=== PATIENT | female | born 1965 | race Caucasian/White ===

== ENCOUNTER 2019-07-27 17:31 | Inpatient (IN) | payer MEDICARE, MEDICAID ==
[2019-07-27] MEDS ORDERED: NS 0.9% 1000 ML** 1,000 ML IV ONE (17:35)
[2019-07-27] MEDS ORDERED: Ondansetron INJ* 2 MG/ML VIAL IV ONE (17:35)
[2019-07-27] MEDS ORDERED: Morphine 4 MG/ML VIAL (1 ml) 4 MG/ML VIAL IV ONE (17:50)
--- NOTE | 2019-07-27 17:51 | ED ---
Abdominal Pain/Female - HPI Summary HPI Summary: 53 yo female presents to [facility] via EMS with abdominal pain. She tells me that yesterday she developed epigastric and RUQ pain with nausea and vomiting. Her symptoms have gotten worse today. She has tried to eat and drink small amounts, but has vomited each time. She denies fever, chills, SOB, chest pain, diarrhea, dysuria, back or flank pain. 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 States no chance of today. No hx of abdominal surgeries. Last BM was 3 days ago which is normal for her BM routine. - History of Current Complaint Chief Complaint: EDAbdPain Stated Complaint: NAUSEA/VOMITTING PER EMS Time Seen by Provider: 07/27/19 17:34 Hx Obtained From: Patient Hx Last Menstrual Period: unknown Onset/Duration: Sudden Onset Severity Initially: Moderate Severity Currently: Severe Pain Intensity: 8 Pain Scale Used: 0-10 Numeric Allergies/Adverse Reactions: Allergies Allergy/AdvReac Type Severity Reaction Status Date / Time aspirin Allergy Unknown Verified 07/27/19 18:47 Reaction Details bee venom protein (honey bee) Allergy Unknown Verified 07/27/19 18:47 Reaction Details gabapentin Allergy Unknown Verified 07/27/19 18:47 Reaction Details Home Medications: Home Medications Bupropion XL* [Wellbutrin XL *] 150 mg PO DAILY 07/27/19 [History Confirmed 11/02] Clopidogrel TAB* [Plavix TAB*] 75 mg PO DAILY 07/27/19 [History Confirmed ] Isosorbide Mononitrate ER TAB* [Imdur ER TAB*] 30 mg PO DAILY 07/27/19 [History Confirmed 07/27/19] Lansoprazole SOLUTAB* [Prevacid Solutab*] 30 mg PO DAILY 07/27/19 [History Confirmed 07/27/19] Rosuvastatin (NF) [Crestor (NF)] 40 mg PO DAILY 07/27/19 [History Confirmed 11/02] PMH/Surg Hx/FS Hx/Imm Hx Endocrine/Hematology History: Reports: Hx Anticoagulant Therapy Denies: Hx Diabetes, Hx Thyroid Disease Cardiovascular History: Reports: Hx Myocardial Infarction Denies: Hx Hypertension Comment Only: Other Cardiovascular Problems/Disorders - CAD Respiratory History: Reports: Hx Asthma, Hx Chronic Obstructive Pulmonary Disease (COPD) GI History: Denies: Hx Ulcer History: Denies: Hx Dialysis, Hx Renal Disease Musculoskeletal History: Denies: Hx Fibromyalgia Neurological History: Reports: Hx CVA Psychiatric History: Reports: Hx Schizophrenia - Surgical History Surgical History: Yes Surgery Procedure, Year, and Place: [facility] 01/22. LEFT carotid surgury for blockage =2009. tubal ligation Infectious Disease History: No Infectious Disease History: Denies: Hx Hepatitis, Hx Human Immunodeficiency Virus (HIV), Traveled Outside the [place] in Last 30 Days - Family History Known Family History: Positive: Non-Contributory - Social History Lives: With Family Alcohol Use: None Substance Use Type: Reports: Marijuana Smoking Status (MU): Heavy Every Day Tobacco Smoker Type: Cigarettes Amount Used/How Often: 6-7 cigs per day Review of Systems Constitutional: Negative Eyes: Negative ENT: Negative Cardiovascular: Negative Respiratory: Negative Positive: Abdominal Pain, Vomiting, Nausea Genitourinary: Negative Musculoskeletal: Negative Skin: Negative Neurological: Negative Psychological: Normal All Other Systems Reviewed And Are Negative: Yes Physical Exam - Summary Physical Exam Summary: GENERAL: Mild pain distress. SKIN: No rashes, sores, or open wounds. HEENT: Head: AT/NC Eyes: PERRLA. EOM intact. NECK: Supple. Nontender. No lymphadenopathy. CHEST: CTAB. No r/r/w. No accessory muscle use. Breathing comfortably and in no distress. CV: RRR. Without m/r/g. Pulses intact. Brisk cap refill. ABDOMEN: Moderate RUQ TTP. Positive santana sign. No distention or guarding. No CVA tenderness. Bowel sounds present MSK: FROM and 5/5 strength throughout. No edema. NEURO: Alert. PSYCH: Age appropriate behavior. Triage Information Reviewed: Yes Vital Signs On Initial Exam: Initial Vitals Temp Pulse Resp BP Pulse Ox 96.8 F 78 16 153/101 96 07/27/19 17:37 07/27/19 17:37 07/27/19 17:37 07/27/19 17:37 07/27/19 17:37 Vital Signs Reviewed: Yes Diagnostics - Vital Signs Vital Signs Temp Pulse Resp BP Pulse Ox 07/27/19 17:37 96.8 F 78 16 153/101 96 - Laboratory Lab Results: Laboratory Tests 07/27/19 07/27/19 07/27/19 18:03 18:03 18:03 WBC 22.5 H RBC 5.67 H Hgb 17.0 H Hct 48 H MCV 85 MCH 30 MCHC 35 RDW 14 Plt Count 348 MPV 6.9 L Neut % (Auto) 83.9 Lymph % (Auto) 11.3 [place] % (Auto) 4.2 Eos % (Auto) 0.0 Baso % (Auto) 0.6 Absolute Neuts (auto) 18.9 H Absolute Lymphs (auto) 2.5 Absolute Monos (auto) 1.0 H Absolute Eos (auto) 0.0 Absolute Basos (auto) 0.1 Absolute Nucleated RBC 0.0 Nucleated RBC % 0.0 Sodium 134 L Potassium 3.4 L Chloride 93 L Carbon Dioxide 23 Anion Gap 18 H BUN 36 H Creatinine 1.05 H Est GFR ( Amer) 66.9 Est GFR (Non-Af Amer) 55.3 BUN/Creatinine Ratio 34.3 H Glucose 148 H Lactic Acid 1.7 Calcium 10.1 Magnesium 2.0 Total Bilirubin 0.70 AST 13 ALT 15 Alkaline Phosphatase 131 H C-Reactive Protein 17.84 H Total Protein 8.2 Albumin 4.7 Globulin 3.5 Albumin/Globulin Ratio 1.3 Lipase 47 Beta HCG, Quant 5.45 07/27/19 Range/Units 20:29 WBC (3.5-10.8) 10^3/uL RBC (3.70-4.87) 10^6 /uL Hgb (12.0-16.0) g/dL Hct (35-47) % MCV (80-97) fL MCH (27-31) pg MCHC (31-36) g/dL RDW (10-15) % Plt Count (150-450) 10^3/uL MPV (7.4-10.4) fL Neut % (Auto) % Lymph % (Auto) % [place] % (Auto) % Eos % (Auto) % Baso % (Auto) % Absolute Neuts (auto) (1.5-7.7) 10^3/ul Absolute Lymphs (auto) (1.0-4.8) 10^3/ul Absolute Monos (auto) (0-0.8) 10^3/ul Absolute Eos (auto) (0-0.6) 10^3/ul Absolute Basos (auto) (0-0.2) 10^3/ul Absolute Nucleated RBC 10^3/ul Nucleated RBC % Sodium (135-145) mmol/L Potassium (3.5-5.0) mmol/L Chloride (101-111) mmol/L Carbon Dioxide (22-32) mmol/L Anion Gap (2-11) mmol/L BUN (6-24) mg/dL Creatinine (0.51-0.95) mg/dL Est GFR ( Amer) (>60) Est GFR (Non-Af Amer) (>60) BUN/Creatinine Ratio (8-20) Glucose (70-100) mg/dL Lactic Acid (0.5-2.0) mmol/L Calcium (8.6-10.3) mg/dL Magnesium (1.9-2.7) mg/dL Total Bilirubin (0.2-1.0) mg/dL AST (13-39) U/L ALT (7-52) U/L Alkaline Phosphatase (34-104) U/L C-Reactive Protein (<8.01) mg/L Total Protein (6.4-8.9) g/dL Albumin (3.2-5.2) g/dL Globulin (2-4) g/dL Albumin/Globulin Ratio (1-3) Lipase (11.0-82.0) U/L Beta HCG, Quant mIU/mL Urine Color [place] Urine Appearance Cloudy Urine pH 6.0 (5-9) Ur Specific [place] 1.044 H (1.010-1.030) Urine Protein 2+(100 mg/dl) A (Negative) Urine Ketones 1+ A (Negative) Urine Blood Negative (Negative) Urine Nitrate Negative (Negative) Urine Bilirubin Negative (Negative) Urine Urobilinogen Negative (Negative) Ur Leukocyte Esterase Negative (Negative) Urine WBC (Auto) Absent (Absent) Urine RBC (Auto) Absent (Absent) Ur Squamous Epith Cells Present A (Absent) Urine Bacteria Absent (Absent) Urine Glucose Negative (Negative) Result Diagrams: 07/31/19 04:38 07/31/19 04:38 Lab Statement: Any lab studies that have been ordered have been reviewed, and results considered in the medical decision making process. - Radiology US gallbladder Radiology Interpretation Completed By: Radiologist Summary of Radiographic Findings: IMPRESSION: No acute sonographic pathology but limited visibility in the right upper quadrant because of overlying bowel gas. CXR Radiology Interpretation Completed By: ED Physician Summary of Radiographic Findings: No PNA - CT Ab/pelv po contrast CT Interpretation Completed By: Radiologist Summary of CT Findings: FINDINGS: Mediastinum: There is new abnormal wall thickening involving the distal esophagus suspicious for possible esophagitis and there is a new small hiatal hernia. Liver: Stable hepatomegaly. Gallbladder and bile ducts: The gallbladder appears unremarkable. Pancreas: The pancreas is unremarkable. Spleen: Normal. No splenomegaly. Adrenals: Normal. No mass. Kidneys and ureters: Normal. No hydronephrosis. Stomach and bowel: Stable gastric diverticulum at the gastric fundus. There is stable sigmoid colonic diverticulosis without evidence for acute diverticulitis. Appendix: The appendix is unremarkable and seen best on axial image 53 of series 2. Intraperitoneal space: Unremarkable. No free air. No significant fluid collection. Vasculature: There are mild atherosclerotic aortic and iliac and femoral artery calcifications. Lymph nodes: Unremarkable. No enlarged lymph nodes. Bladder: Unremarkable as visualized. Reproductive: Unremarkable as visualized. Bones/joints: There are mild degenerative changes of the spine. Soft tissues: Unremarkable. IMPRESSION: 1. There is new abnormal wall thickening involving the distal esophagus suspicious for possible esophagitis and there is a new small hiatal hernia. 2. The pancreas is unremarkable. 3. The gallbladder appears unremarkable. 4. There is stable sigmoid colonic diverticulosis without evidence for acute diverticulitis. - EKG 1 Cardiac Rate: NL EKG Rhythm: Sinus Rhythm ST Segment: Normal Ectopy: None EKG Comparison: Other - 91bpm. No STEMI read by Dr. Donald Re-Evaluation - Re-Evaluation First Eval Re-Evaluation Time: 20:04 Change: Unchanged Comment: Reviewed US and CT results. Pt states no improvement and still periodic vomiting. Second Eval Re-Evaluation Time: 21:38 Change: Improved Comment: Has not vomited in over 45 minutes. Overall feels slightly improved, but still with pain to epigastrum 5/10 at rest and 8-9/10 with palpation. Abdominal Pain Fem Course/Dx - Course Course Of Treatment: In the ED course pt was initially given NS, morphine, and zofran for her symptoms. Labwork revealed leukocytosis - based on this, her clinical exam, and tachycardia, zosyn and 2L NS were administered for suspicion of intra-abdominal infection. US and CT revealed no correlation with pt's symptoms. I discussed case with Dr. Donald due to pt's leukocytosis, continued vomiting, and abdominal pain with no correlation on US, UA, CT, or CXR and he recommends continued observation at this time to see if she improves clinically and can tolerate po - if not recommends admit for leukocytosis, vomiting, and tachycardia. On second eval - Pt remains mildly tachycardic averaging 100bpm- 115bpm. Her vomiting lessened on second eval and a po trial of ice chips and crackers was tried and she was able to tolerate this, but her pain was still 9/ 10 on light palpation. Pt does not feel comfortable going home this evening. Given her slow/minimal improvement and continued pain - I consulted the hospitalist team who accepts pt for admission. - Diagnoses Provider Diagnoses: Vomiting, Epigastric abdominal pain, Leukocytosis - Provider Notifications Discussed Care Of Patient With: Tahir Xavier Instructed by Provider To: Admit As Inpatient Discharge ED - Sign-Out/Discharge Documenting (check all that apply): Patient Departure - Discharge Plan Condition: Stable Disposition: ADMITTED TO [facility] - Billing Disposition and Condition Condition: STABLE Disposition: Admitted to [facility] - Attestation Statements Provider Attestation: I was available for consult. This patient was seen by the [facility]. The patient was not presented to, seen by, or examined by me. Hesham Donald MD
[2019-07-27 18:10] LABS: Hematocrit 48 % (35-47); Mean Corpuscular HGB Conc 35 g/dL (31-36); Mean Corpuscular Hemoglobin 30 pg (27-31); Mean Corpuscular Volume 85 fL (80-97); Mean Platelet Volume 6.9 fL (7.4-10.4); Platelet Count 348 10^3/uL (150-450); Red Blood Count 5.67 10^6 /uL (3.70-4.87); Red Cell Distribution Width 14 % (10-15); White Blood Count 22.5 10^3/uL (3.5-10.8)
[2019-07-27] MEDS ORDERED: Piperacillin/Tazobac ADVAN(*) 3.375 GM in NS 0.9% 100 ML* 100 ML IVPB ONE (18:19)
[2019-07-27] MEDS ORDERED: Piperacillin/Tazobac (*) 3.375 GM BAG ONE (18:24)
[2019-07-27 18:28] LABS: Albumin 4.7 g/dL (3.2-5.2); Albumin/Globulin Ratio 1.3 (1-3); BUN/Creatinine Ratio 34.3 (8-20); C Reactive Protein 17.84 mg/L (<8.01); Calcium 10.1 mg/dL (8.6-10.3); EGFR African American 66.9 (>60); EGFR Non-African American 55.3 (>60); Globulin 3.5 g/dL (2-4); Potassium 3.4 mmol/L (3.5-5.0); Total Bilirubin 0.7 mg/dL (0.2-1.0); Total Protein 8.2 g/dL (6.4-8.9)
[2019-07-27 18:35] LABS: HCG Pregnancy 5.45 mIU/mL
[2019-07-27 18:37] LABS: ABS Basophils 0.1 10^3/ul (0-0.2); ABS Lymphocytes 2.5 10^3/ul (1.0-4.8); ABS Neutrophils 18.9 10^3/ul (1.5-7.7); Lymphocyte % 11.3 %
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
--- OUTSIDE RECORDS SUMMARY | 2019-07-27 19:15 | XMS REPORT | Summary of Care ---
:1965 Author Organization [facility] Address [address] [facility] [place] [address] Care Team Providers Name Role Phone Tucker Ragland Primary Care Provider Reason for Visit Reason Comments Neck Pain pt states went to [place] ER due to neck pain. pt was dx'd with muscle spasms. pt has rash left side of posterior neck, pain shooting down left side of back and left arm Encounter Details Date Type Department Care Team Description 07/12/2019 Office Visit Corinna Adame, Herpes zoster without complication (Primary Dx); Practice SENIOR PROGRAM ANALYST Muscle spasm [address] [place], [place] [address] [place] [address] [phone] Allergies Active Allergy Reactions Severity Noted Date Comments Aspirin Swelling 06/13/2019 Bee Sting Swelling 06/13/2019 Eucalyptus Leaves Powder Anaphylaxis 06/13/2019 Gabapentin Swelling 06/13/2019 Menthol Anaphylaxis 06/13/2019 Petrolatum, Hydrophilic Other 06/13/2019 Vicks also [employer] [place] [employer] documented as of this encounter (statuses as of 07/12/2019) Medications Medication Sig Dispensed Refills Start Date End Date Status Lansoprazole 30 MG Oral Take 1 Tab by 0 Active TABLET DISPERSIBLE mouth DAILY. ALBUTEROL IN Take by 0 Active inhalation. clopidogrel (PLAVIX) 75 Take 75 mg by 0 Active MG Oral Tab mouth DAILY. buPROPion XL (WELLBUTRIN Take 1 Tab by 90 Tab 0 06/20/2019 Active XL) 150 MG Oral TABLET SR mouth DAILY. 24 HR 24 hour tablet isosorbide MONOnitrate Take 1 Tab by 90 Tab 1 06/20/2019 Active (IMDUR) 30 MG Oral TABLET mouth DAILY. SR 24 HRIndications: Hypertension, unspecified type Rosuvastatin Calcium Take 1 Tab by 90 Tab 1 06/20/2019 Active (CRESTOR) 40 MG Oral mouth DAILY. TabIndications: History of stroke dicyclomine (BENTYL) 20 Take 1 Tab by 120 Tab 0 07/07/2019 Active MG Oral Tab mouth TWICE DAILY. VALacyclovir 1 g Oral Take 1 Tab by 21 Tab 0 07/12/2019 Active TabIndications: Herpes mouth THREE zoster without TIMES DAILY. complication cyclobenzaprine Take 1 Tab by 60 Tab 0 07/12/2019 Active (FLEXERIL) 10 MG Oral mouth THREE TabIndications: Muscle TIMES DAILY spasm NEEDED (spasm). documented as of this encounter (statuses as of 07/12/2019) Active Problems Problem Noted Date Irritable bowel syndrome with diarrhea 07/07/2019 documented as of this encounter (statuses as of 07/12/2019) Social History Tobacco Use Types Packs/Day Years [...] Sign Reading Time Taken Comments Blood Pressure 132/82 07/12/2019 8:28 AM EDT Pulse 101 07/12/2019 8:28 AM EDT Temperature 36.9 07/12/2019 8:28 AM EDT C (98.5 F) Respiratory Rate - - Oxygen Saturation 95% 07/12/2019 8:28 AM EDT Inhaled Oxygen Concentration - - Weight 85.3 kg (188 lb) 07/12/2019 8:28 AM EDT Height 157.5 cm (5' 2") 07/12/2019 8:28 AM EDT Body Mass Index 34.39 07/12/2019 8:28 AM EDT documented in this encounter Patient Instructions Patient InstructionsCorinna Tena FNP - 07/12/2019 8:20 AM EDTContinue current medications Add Valtrex 3 times a day for 1 week Ice to painful adam may help Call if pain persistsElectronically signed by Corinna Tena FNP at 2018 8:38 AM EDT documented in this encounter Progress Notes Corinna Tena FNP - 07/12/2019 8:20 AM EDT PATIENT: Bhargavi Tran : 1965 DATE OF SERVICE: 07/12/2019 CHIEF COMPLAINT: Chief Complaint Patient presents with Neck Pain pt states went to [place] ER due to neck pain. pt was dx'd with muscle spasms. pt has rash left side of posterior neck, pain shooting down left side of back and left arm Subjective HISTORY OF PRESENT ILLNESS: Bhargavi Tran is a 53-y.o. female. HPI Seen in [place] ER 07/10/19 for neck and shoulder pain - Dx muscle spasm and Rx Flexeril and Ibuprofen per pt report - no records available at time of visit today. No change in pain - getting worse. Now has rash Past Medical History: Diagnosis Date Antisocial personality disorder (HCC) COPD (chronic obstructive pulmonary disease) (HCC) CVA (cerebral vascular accident) (HCC) GERD (gastroesophageal reflux disease) Heart attack (HCC) HLD (hyperlipidemia) Postmenopausal PTSD (post-traumatic stress disorder) S/P carotid endarterectomy left Schizoaffective disorder, bipolar type (HCC) Family History Problem Relation Age of Onset [...] Tab Take 75 mg by mouth DAILY. cyclobenzaprine (FLEXERIL) 10 MG Oral Tab Take 1 Tab by mouth THREE TIMES DAILY NEEDED (spasm). dicyclomine (BENTYL) 20 MG Oral Tab Take 1 Tab by mouth TWICE DAILY. isosorbide MONOnitrate (IMDUR) 30 MG Oral TABLET SR 24 HR Take 1 Tab by mouth DAILY. Lansoprazole 30 MG Oral TABLET DISPERSIBLE Take 1 Tab by mouth DAILY. Rosuvastatin Calcium (CRESTOR) 40 MG Oral Tab Take 1 Tab by mouth DAILY. VALacyclovir 1 g Oral Tab Take 1 Tab by mouth THREE TIMES DAILY. No current facility-administered medications for this [...] file Gets together: Not on file Attends caodaism service: Not on file Active member of [...] 3 children On disability REVIEW OF SYSTEMS: Review of Systems Constitutional: Positive for malaise/fatigue. Negative for chills and fever. Respiratory: Negative for cough and shortness of breath. Musculoskeletal: Positive for myalgias and neck pain. Skin: Positive for rash. Negative for itching. Neurological: Positive for tingling. Negative for headaches. Objective PHYSICAL EXAM: VITALS: BP 132/82 (BP Location: Left arm, Patient Position: Sitting) | Pulse 101 | Temp 98.5 F (36.9 C) | Ht 5' 2" (1.575 m) | Wt 188 lb (85.3 kg ) | SpO2 95% | BMI 34.39 kg/m Body mass index is 34.39 kg/m. Physical Exam Constitutional: She is oriented to person, place, and time. Vital signs are normal. She appears well-developed and well-nourished. HENT: Head: Normocephalic and atraumatic. Eyes: Pupils are equal, round, and reactive to light. Neck: Normal range of motion. Muscular tenderness present. No neck rigidity. No thyromegaly present. Musculoskeletal: Left shoulder: She exhibits decreased range of motion and tenderness. Thoracic back: She exhibits tenderness and spasm. She exhibits normal range of motion and no edema. Back: Lymphadenopathy: She has no cervical adenopathy. Neurological: She is alert and oriented to person, place, and time. No cranial nerve deficit or sensory deficit. Gait normal. Skin: Skin is warm and dry. Capillary refill takes 2 to 3 seconds. Rash noted. Rash is vesicular. Vitals reviewed. ASSESSMENT / IMPRESSION: ICD-9-CM ICD-10-CM 1. Herpes zoster without complication 053.9 B02.9 VALacyclovir 1 g Oral Tab 2. Muscle spasm 728.85 M62.838 cyclobenzaprine (FLEXERIL) 10 MG Oral Tab Plan Continue current medications Add Valtrex 3 times a day for 1 week Ice to painful adam may help Call if pain persists Author: DILSHAD Jaime 07/12/2019 08:45 documented in this encounter Plan of Treatment Date Type Specialty Care Team Description 08/07/2019 Office Visit Gastroenterology Jaja Yanez, SLOTTER OPERATOR [address] [address] [phone] 01/01/2020 Ancillary Procedure Radiology 01/01/2020 Ancillary Procedure Radiology Health Maintenance Due Date Last Done Comments [...] filedocumented in this encounter Visit Diagnoses Diagnosis Herpes zoster without complication - Primary Herpes zoster without mention of complication Muscle spasm Spasm of muscle documented in this encounter Insurance Payer Benefit Plan / Subscriber ID Effective Phone Address Type Group Dates UHC MEDICARE UNITED xxxxxxxxx 2019-Prese UHC ADVANTAGE HEALTHCARE nt MEDICARE ADVANT[place] MEDICAID [place] xxxxxxxx 2019-Prese [place] nt documented as of this encounter
[2019-07-27] MEDS ORDERED: NS 0.9% 1000 ML** 2,520 ML IV ONE (19:30)
[2019-07-27] MEDS ORDERED: Iodixanol* (CONTRAST) 320 MG/ML 100 ML SDV IV ONE (19:33)
[2019-07-27] MEDS ORDERED: PROCHLORPERAZINE INJ 5 MG/ML 2 ML VIAL IV ONE (20:07)
[2019-07-27] MEDS ORDERED: diPHENhydraMINE IV* 50 MG/ML 1 ml VIAL (BENADRYL) IV ONE (20:07)
[2019-07-27 20:46] LABS: Urine Appearance Cloudy; Urine Bacteria Absent (Absent); Urine Bilirubin Negative (Negative); Urine Blood Negative (Negative); Urine Color Amber; Urine Glucose Negative (Negative); Urine Ketones 1+ (Negative); Urine Nitrite Negative (Negative); Urine Protein 2+(100 mg/dL) (Negative); Urine Red Blood Cell Absent (Absent); Urine Specific Gravity 1.044 (1.010-1.030); Urine Squamous Epithelial Cell Present (Absent); Urine Urobilinogen Negative (Negative); Urine White Blood Cell Absent (Absent)
[2019-07-27 22:21] LABS: HIV 4th Generation Nonreactive (Nonreactive)
[2019-07-27 22:48] LABS: Hepatitis B Surface Antigen Negative (Negative)
[2019-07-27 23:43] LABS: Hepatitis C Antibody Reactive (Negative)
[2019-07-28] MEDS ORDERED: Lidocaine 2% VISCOUS* 15 ML UDC PO ONE (00:15)
[2019-07-28] MEDS ORDERED: Al Hydrox/Mg Hydrox/Simet LIQ* 30 ML UDC PO ONE (00:15)
[2019-07-28] MEDS ORDERED: Lactated Ringers 1000 ML Bag* 1,000 ML IV SCH (02:00)
[2019-07-28] MEDS ORDERED: Albuterol HFA INHALER* 8 gm MDI INH PRN (04:52)
[2019-07-28] MEDS ORDERED: Piperacillin/Tazobac ADVAN(*) 3.375 GM in NS 0.9% 100 ML* 100 ML IVPB ONE (04:54)
[2019-07-28] MEDS ORDERED: Zosyn per Pharmacy* NOTE FOLLOW UP SCH (05:00)
[2019-07-28 06:26] LABS: Calcium 7.8 mg/dL (8.6-10.3)
[2019-07-28 06:31] LABS: BUN/Creatinine Ratio 27.7 (8-20); EGFR African American 87.7 (>60); EGFR Non-African American 72.5 (>60)
[2019-07-28 06:36] LABS: ABS Basophils 0.1 10^3/ul (0-0.2); ABS Lymphocytes 1.7 10^3/ul (1.0-4.8); ABS Monocytes 0.8 10^3/ul (0-0.8); ABS Neutrophils 11.3 10^3/ul (1.5-7.7); Eosinophil % 0.1 %; Hematocrit 39 % (35-47); Hemoglobin 13.3 g/dL (12.0-16.0); Lymphocyte % 12.5 %; Mean Corpuscular HGB Conc 34 g/dL (31-36); Mean Corpuscular Hemoglobin 30 pg (27-31); Mean Corpuscular Volume 87 fL (80-97); Mean Platelet Volume 6.9 fL (7.4-10.4); Platelet Count 222 10^3/uL (150-450); Red Blood Count 4.51 10^6 /uL (3.70-4.87); Red Cell Distribution Width 15 % (10-15); White Blood Count 13.9 10^3/uL (3.5-10.8)
[2019-07-28 06:55] LABS: Potassium 3.6 mmol/L (3.5-5.0)
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
[2019-07-28] MEDS: Isosorbide Mononitrate ER TAB* 30 MG PO SCH (08:58)
[2019-07-28] MEDS: Atorvastatin* 80 MG TAB PO SCH (08:58)
[2019-07-28] MEDS: Sucralfate TAB* 1 GM PO SCH ×3 (08:58→23:07)
[2019-07-28] MEDS: Nicotine PATCH 14 MG/24 HR* PATCH TRANSDERM SCH (08:58)
[2019-07-28] MEDS: Lidocaine 2% VISCOUS* 15 ML UDC PO PRN ×2 (08:59→17:44)
[2019-07-28] MEDS: BuPROPion XL* 150 MG TAB.XL PO SCH (08:59)
[2019-07-28] MEDS: ZOSYN 3.375 GM Q8H per EXTENDED INFUSION IVPB SCH ×4 (08:59→17:43)
[2019-07-28] MEDS: Enoxaparin(*) 40 MG/0.4 ML SYR SUBCUT SCH (08:59)
[2019-07-28] MEDS ORDERED: Pantoprazole TAB * 40 MG TAB PO SCH (09:00)
[2019-07-28] MEDS ORDERED: Clopidogrel TAB* 75 MG PO SCH (09:00)
[2019-07-28] MEDS: SPIRIVA Respimat* (tiotropium) 2.5 mcg/inh Inhaler INH SCH (09:02)
[2019-07-28] MEDS ORDERED: Magnesium Hydroxide LIQ* 30 ML UDC PO PRN (09:13)
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
[2019-07-28] MEDS: Pantoprazole IV* 40 MG IV SCH (15:37)
[2019-07-28] MEDS: Acetaminophen TAB* 325 MG PO PRN (17:42)
[2019-07-28] MEDS: Ondansetron INJ* 2 MG/ML VIAL IV PRN (17:43)
[2019-07-28] MEDS: NS 0.9% 1000 ML** 1,000 ML IV SCH (19:09)
[2019-07-28] MEDS: Famotidine IV* 10 MG/ML 2 ML (20 mg) IV SLOW PU SCH (23:06)
[2019-07-28] MEDS: Nicotine Patch Removal NOTE PATCH OFF SCH (23:13)
[2019-07-29] MEDS: ZOSYN 3.375 GM Q8H per EXTENDED INFUSION IVPB SCH ×4 (02:17→10:20)
[2019-07-29] MEDS: NS 0.9% 1000 ML** 1,000 ML IV SCH (05:55)
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
[2019-07-29] MEDS: SPIRIVA Respimat* (tiotropium) 2.5 mcg/inh Inhaler INH SCH (07:43)
[2019-07-29 08:23] LABS: BUN/Creatinine Ratio 11.8 (8-20); Calcium 8.1 mg/dL (8.6-10.3); EGFR African American 76.9 (>60); EGFR Non-African American 63.6 (>60); Potassium 3.6 mmol/L (3.5-5.0)
[2019-07-29 09:44] LABS: ABS Basophils 0.1 10^3/ul (0-0.2); ABS Lymphocytes 1.6 10^3/ul (1.0-4.8); ABS Monocytes 0.4 10^3/ul (0-0.8); Eosinophil % 0.5 %; Hematocrit 37 % (35-47); Hemoglobin 12.5 g/dL (12.0-16.0); Lymphocyte % 22.6 %; Mean Corpuscular HGB Conc 34 g/dL (31-36); Mean Corpuscular Hemoglobin 30 pg (27-31); Mean Corpuscular Volume 88 fL (80-97); Mean Platelet Volume 6.9 fL (7.4-10.4); Platelet Count 202 10^3/uL (150-450); Red Blood Count 4.18 10^6 /uL (3.70-4.87); Red Cell Distribution Width 14 % (10-15)
[2019-07-29] MEDS: Lidocaine 2% VISCOUS* 15 ML UDC PO PRN ×2 (10:15→18:49)
[2019-07-29] MEDS: Pantoprazole IV* 40 MG IV SCH (10:17)
[2019-07-29] MEDS: Nicotine PATCH 14 MG/24 HR* PATCH TRANSDERM SCH (10:18)
[2019-07-29] MEDS: Enoxaparin(*) 40 MG/0.4 ML SYR SUBCUT SCH (10:18)
[2019-07-29] MEDS: BuPROPion XL* 150 MG TAB.XL PO SCH (10:19)
[2019-07-29] MEDS: Atorvastatin* 80 MG TAB PO SCH (10:19)
[2019-07-29] MEDS: Isosorbide Mononitrate ER TAB* 30 MG PO SCH (10:19)
[2019-07-29] MEDS: Sucralfate TAB* 1 GM PO SCH ×3 (10:19→21:49)
[2019-07-29] MEDS: Famotidine IV* 10 MG/ML 2 ML (20 mg) IV SLOW PU SCH ×2 (10:20→21:49)
[2019-07-29] MEDS: Ciprofloxacin 400MG IVPREMIX(* 400 MG/200 ML BAG IVPB SCH (13:23)
[2019-07-29] MEDS: metroNIDAZOLE IV 500 MG/100ML* 500 MG/100 ML BAG IVPB SCH (15:32)
--- NOTE | 2019-07-29 18:12 | CONS ---
CONSULTATION REPORT: DATE OF CONSULT: 07/29/19 REQUESTING PHYSICIAN: Dr. Corbett. INDICATION: Epigastric pain. NARRATIVE: This is a pleasant 53-year-old female who is admitted with epigastric pain, nausea and vomiting. The patient states she has been taking ibuprofen 2 to 3 tablets every day for the past 3 weeks, the pills are 600 mg. She was having shingles and the ibuprofen was for that. The pain is located in her epigastrium with no radiation. She was having nausea. She was vomiting. Her stools have not been black. Her stools have been brown. She denies any weakness, fatigue, or lethargy. No history of GI bleeding in the past. Upon admission, she did have a CT abdomen and pelvis which revealed distal esophageal thickening. She is feeling a little bit better today. PAST MEDICAL HISTORY: Carotid artery stenosis, coronary artery disease, CVA, COPD, GERD, personality disorder, hep C. MEDICATIONS: Include: 1. Plavix. 2. Imdur. 3. Crestor. 4. Wellbutrin. 5. Prevacid. ALLERGIES: ASPIRIN and GABAPENTIN. FAMILY HISTORY: Lung cancer, skin cancer. SOCIAL HISTORY: History of cocaine and cannabis use. She continues to smoke. REVIEW OF SYSTEMS: Twelve systems were reviewed. Other than that mentioned in the HPI were unremarkable. PHYSICAL EXAMINATION: Temperature is 98.7, blood pressure is 113/80, pulse is 82, respiratory rate of 20, O2 sat is 99%. General: Chronically ill-appearing female, in no apparent distress. Alert, oriented and pleasant and fluent, appears older than stated age. HEENT: Mucous membranes are moist without lesions, ulcers, or exudates. Neck is supple. Trachea is midline. Head is normocephalic, atraumatic. Heart: Regular rate and rhythm. Lungs: Clear to auscultation. Abdomen: Positive bowel sounds, soft, nontender and nondistended. No hepatosplenomegaly, masses, rebound, or guarding. Skin is warm and dry. DIAGNOSTIC STUDIES/LAB DATA: Labs of note, white count came down from 22.5 to 7 , hemoglobin went from 17 to 13.3 to 12.5, platelets of 202. BUN is 11 down from 23, creatinine is 0.93. Hepatitis C antibody is reactive, however, her quant is undetectable. ASSESSMENT AND PLAN: This is a pleasant 53-year-old female with epigastric pain , who had a CT showing distal esophageal thickening, who is taking a large amount of NSAIDs. She does need an upper endoscopy to evaluate for any peptic ulcer disease or erosive esophagitis. I will make her arrangements for on Wednesday. She can have a regular diet up until at that point. She should remain on a PPI. We will follow. [id number]/[facility] #: [id number] MTDD
[2019-07-29] MEDS ORDERED: Morphine INJ* 2 MG/ML 1 ML SYRINGE (TWO MG - NEW SYRINGE VERSION) IV PRN (21:31)
[2019-07-29] MEDS ORDERED: Lorazepam PYXIS KEY PRN (21:31)
[2019-07-29] MEDS ORDERED: LORazepam INJ* 2 MG/ML 1 ML VIAL IV PUSH PRN (21:31)
[2019-07-29] MEDS: Acetaminophen TAB* 325 MG PO PRN (22:12)
[2019-07-29] MEDS: Nicotine Patch Removal NOTE PATCH OFF SCH (23:23)
[2019-07-29] MEDS ORDERED: traMADol TAB* 50 MG PO ONE (23:49)
[2019-07-30] MEDS: Ciprofloxacin 400MG IVPREMIX(* 400 MG/200 ML BAG IVPB SCH ×2 (02:57→12:59)
[2019-07-30] MEDS: metroNIDAZOLE IV 500 MG/100ML* 500 MG/100 ML BAG IVPB SCH ×2 (04:22→14:22)
[2019-07-30 06:44] LABS: ABS Eosinophils 0.1 10^3/ul (0-0.6); ABS Lymphocytes 1.7 10^3/ul (1.0-4.8); ABS Monocytes 0.5 10^3/ul (0-0.8); ABS Neutrophils 4.8 10^3/ul (1.5-7.7); Hematocrit 35 % (35-47); Hemoglobin 12.3 g/dL (12.0-16.0); Lymphocyte % 23.3 %; Mean Corpuscular HGB Conc 35 g/dL (31-36); Mean Corpuscular Hemoglobin 31 pg (27-31); Mean Corpuscular Volume 87 fL (80-97); Mean Platelet Volume 7.4 fL (7.4-10.4); Platelet Count 233 10^3/uL (150-450); Red Blood Count 4.02 10^6 /uL (3.70-4.87); Red Cell Distribution Width 14 % (10-15); White Blood Count 7.1 10^3/uL (3.5-10.8)
[2019-07-30 06:53] LABS: BUN/Creatinine Ratio 9.4 (8-20); Calcium 8.6 mg/dL (8.6-10.3); EGFR African American 85.3 (>60); EGFR Non-African American 70.5 (>60); Potassium 3.4 mmol/L (3.5-5.0)
[2019-07-30] MEDS: SPIRIVA Respimat* (tiotropium) 2.5 mcg/inh Inhaler INH SCH (07:32)
--- NOTE | 2019-07-30 07:38 | PN ---
Subjective Date of Service: 07/30/19 Interval History: HD3 on 07/30 53F PMH CAD s/p distant RI, s/p CEA, COPD, chronic hep C, HTN, HLD, mood disorder, recent shingles with increased NSAID use (d/c 1 wk [employer]) who presents septic with ? intra-abdominal source (no e/o perforation, mass or colitis) and with severe epigastric pain found to have distal esophagitis on scan Interim: Slowly advancing diet, seen by GI yesterday, plan for scope Tuesday 07/31 for r/o erosive esophagitis +1 BM, FOBT + Overnight no acute events, VSS Labs returned to normal, K 3.4 Also had diffuse diarrhea overnight x 2 episodes, described as watery and dark black This morning, wants to convert back to liquid diet, still in a lot of pain. Everytime she swallows quite painful, otherwise pleasant and well without chest pulm MSK complaints. Objective Active Medications: Acetaminophen (Tylenol Tab*) 650 mg PO Q6H PRN PRN Reason: PAIN - MILD Last Admin: 07/29/19 22:12 Dose: 650 mg Albuterol (Ventolin Hfa Inhaler*) 2 puff INH Q4H PRN PRN Reason: SOB/WHEEZING Last Admin: 07/30/19 04:15 Dose: 2 puff Atorvastatin Calcium (Lipitor*) 80 mg PO DAILY [facility] Last Admin: 07/29/19 10:19 Dose: 80 mg Bupropion HCl (Wellbutrin Xl *) 150 mg PO DAILY [facility] Last Admin: 07/29/19 10:19 Dose: 150 mg Enoxaparin Sodium (Lovenox(*)) 40 mg SUBCUT Q24H [facility] Last Admin: 07/29/19 10:18 Dose: 40 mg Famotidine (Pepcid Iv*) 20 mg IV SLOW PU BID [facility] Last Admin: 07/29/19 21:49 Dose: 20 mg Ciprofloxacin/Dextrose (Cipro 400 Mg Ivpremix(*)) 400 mg in 200 mls @ 200 mls/ hr IVPB Q12H [facility]; Protocol Last Admin: 07/30/19 02:57 Dose: 200 mls/hr Metronidazole/Sodium Chloride (Flagyl 500 Mg Ivpb*) 500 mg in 100 mls @ 100 mls /hr IVPB Q12H [facility] Last Admin: 07/30/19 04:22 Dose: 100 mls/hr Isosorbide Mononitrate (Imdur Er Tab*) 30 mg PO DAILY [facility] Last Admin: 07/29/19 10:19 Dose: 30 mg Lidocaine (Xylocaine 2% Viscous*) 15 ml PO TID PRN PRN Reason: epigastric pain Last Admin: 07/29/19 18:49 Dose: 15 ml Magnesium Hydroxide (Milk Of Magnesia Liq*) 30 ml PO Q6H PRN PRN Reason: CONSTIPATION Last Admin: 07/29/19 13:23 Dose: 30 ml Nicotine (Nicotine Patch 14 Mg/24 Hr*) 1 patch TRANSDERM DAILY [facility] Last Admin: 07/29/19 10:18 Dose: Not Given Ondansetron HCl (Zofran Inj*) 4 mg IV Q6H PRN PRN Reason: NAUSEA Last Admin: 07/28/19 17:43 Dose: 4 mg Pantoprazole Sodium (Protonix Iv*) 40 mg IV DAILY [facility] Last Admin: 07/29/19 10:17 Dose: 40 mg Pharmacy Profile Note (Nicotine Patch Removal Note*) 1 note PATCH OFF 2100 [facility] Last Admin: 07/29/19 23:23 Dose: Not Given Potassium Chloride (Klor Con Er Tab*) 10 meq PO BID [facility] Sucralfate (Carafate*) 1 gm PO TID [facility] Last Admin: 07/29/19 21:49 Dose: 1 gm Tiotropium [place] (Spiriva Respimat 2.5 Mcg) 2 puff INH DAILY [facility] Last Admin: 07/30/19 07:32 Dose: 2 puff Vital Signs - 8 hr 07/30/19 03:03 Temperature 97.1 F Pulse Rate 77 Respiratory 20 Rate Blood Pressure 113/75 (mmHg) O2 Sat by Pulse 95 Oximetry Oxygen Devices in Use Now: None Appearance: Pleasant woman in NAD Eyes: No Scleral Icterus Ears/Nose/Mouth/Throat: Mucous Membranes Moist, - - Poor dentition Neck: NL Appearance and Movements; NL JVP Respiratory: Symmetrical Chest Expansion and Respiratory Effort, Clear to Auscultation Cardiovascular: NL Sounds; No Murmurs; No JVD, RRR Abdominal: No Hepatosplenomegaly - Soft NABS Non distended tender to epigastric no rebound gaurding, - Lymphatic: No Cervical Adenopathy Extremities: No Edema Skin: No Rash or Ulcers Neurological: Alert and Oriented x 3 Result Diagrams: 07/30/19 05:49 07/30/19 05:49 Microbiology and Other Data: Microbiology 07/29/19 23:00 Stool Occult Blood (INDIRA) - Final Stool 07/27/19 18:25 Aerobic Blood Culture - Preliminary No Source Provided No Growth Day 2 Anaerobic Blood Culture - Preliminary No Growth Day 2 Diagnostic Imaging: CT Scan: Distal Esophagitis on scan Assess/Plan/Problems-Billing Assessment: 53F PMH CAD s/p distant RI, s/p CEA, COPD, chronic hep C, HTN, HLD, mood disorder, recent shingles with increased NSAID use (d/c 1 wk [employer]) who presents septic with ? intra-abdominal source (no e/o perforation, mass or colitis) and with severe epigastric pain found to have distal esophagitis on scan, hospital course c/b diarrhea. - Patient Problems (1) Esophagitis Current Visit: Yes Status: Acute Code(s): K20.9 - ESOPHAGITIS, UNSPECIFIED SNOMED Code(s): 53116194 Comment: - Diffuse thickening seen on CT. Pill esophagitis, vs PUD, less likely infectious, no e/o immunsuppresion - Plan for scope 07/31 - Epigastric pain continues, FOBT + - IV PPI, H2 ronald, Sucralfate AC (2) Sepsis Current Visit: Yes Status: Acute Comment: - Resolved, assumed intrabdominal source, possible translocation with erosive, now having diarrhea - Culture data unrevealing - Treating for intrabdominal infection total of 5 days Day 2/5-7 Cipro/Flagyl on 07/30, now having diarrhea (3) Diarrhea Current Visit: Yes Status: Acute Code(s): R19.7 - DIARRHEA, UNSPECIFIED SNOMED Code(s): 62803977 Comment: - New onset on 07/29 PM - x 2 episodes, described as dark, FOBT + - H/H stable - Continue abx for now (4) CAD (coronary artery disease) Current Visit: Yes Status: Acute Code(s): I25.10 - ATHSCL HEART DISEASE OF [place] CORONARY ARTERY W/O ANG PCTRS SNOMED Code(s): 59216495 Comment: - CAD w/ distant RI, then CVA without defecit - On 2/2 prevention on DAPT still 2/2 to hx of CVA, holding Clopidogrel initially, likely safe to resume if H/H doesn't drop in setting of diarrhea (5) Bipolar disorder Current Visit: Yes Status: Acute Code(s): F31.9 - BIPOLAR DISORDER, UNSPECIFIED SNOMED Code(s): 08800536 Comment: - Wellbutrin (6) COPD (chronic obstructive pulmonary disease) Current Visit: Yes Status: Acute Code(s): J44.9 - CHRONIC OBSTRUCTIVE PULMONARY DISEASE, UNSPECIFIED SNOMED Code(s): 58695530 Comment: - No e/o of exacerbation, continue home meds spiriva and albuterol (7) Exposure to hepatitis C Current Visit: Yes Status: Acute Code(s): Z20.5 - CONTACT WITH AND ( SUSPECTED) EXPOSURE TO VIRAL HEPATITIS SNOMED Code(s): 038599608 Comment: - VL undetected, Ab positive (8) DVT prophylaxis Current Visit: Yes Status: Acute Code(s): Z29.9 - ENCOUNTER FOR PROPHYLACTIC MEASURES, UNSPECIFIED SNOMED Code(s): 953565795 Comment: - Lovenox (9) Full code status Current Visit: Yes Status: Acute Code(s): Z78.9 - OTHER SPECIFIED HEALTH STATUS SNOMED Code(s): 213080086 Status and Disposition: Inpatient; GI following, if stable post EGD, may be able to d/c to home if no further diarrhea
[2019-07-30] MEDS: Famotidine IV* 10 MG/ML 2 ML (20 mg) IV SLOW PU SCH ×2 (09:43→19:35)
[2019-07-30] MEDS: Pantoprazole IV* 40 MG IV SCH (09:43)
[2019-07-30] MEDS: Potassium Chlor TAB* 10 MEQ TAB.ER PO SCH ×2 (10:48→19:36)
[2019-07-30] MEDS: BuPROPion XL* 150 MG TAB.XL PO SCH (10:48)
[2019-07-30] MEDS: Sucralfate TAB* 1 GM PO SCH ×3 (10:48→19:36)
[2019-07-30] MEDS: Enoxaparin(*) 40 MG/0.4 ML SYR SUBCUT SCH (10:48)
[2019-07-30] MEDS: Isosorbide Mononitrate ER TAB* 30 MG PO SCH (10:48)
[2019-07-30] MEDS: Atorvastatin* 80 MG TAB PO SCH (10:48)
[2019-07-30] MEDS: Nicotine PATCH 14 MG/24 HR* PATCH TRANSDERM SCH (10:50)
[2019-07-30] MEDS: Lidocaine 2% VISCOUS* 15 ML UDC PO PRN (14:17)
[2019-07-30] MEDS: Acetaminophen TAB* 325 MG PO PRN (19:36)
[2019-07-30] MEDS: Nicotine Patch Removal NOTE PATCH OFF SCH (20:25)
[2019-07-30] MEDS ORDERED: traMADol TAB* 50 MG PO ONE (20:51)
[2019-07-31] MEDS: Ciprofloxacin 400MG IVPREMIX(* 400 MG/200 ML BAG IVPB SCH ×2 (00:41→13:09)
[2019-07-31] MEDS: metroNIDAZOLE IV 500 MG/100ML* 500 MG/100 ML BAG IVPB SCH ×2 (02:03→13:53)
[2019-07-31 04:51] LABS: ABS Basophils 0.1 10^3/ul (0-0.2); ABS Eosinophils 0.1 10^3/ul (0-0.6); ABS Lymphocytes 1.7 10^3/ul (1.0-4.8); ABS Monocytes 0.4 10^3/ul (0-0.8); ABS Neutrophils 4.6 10^3/ul (1.5-7.7); Eosinophil % 1.3 %; Hematocrit 36 % (35-47); Hemoglobin 12.7 g/dL (12.0-16.0); Lymphocyte % 25.2 %; Mean Corpuscular HGB Conc 35 g/dL (31-36); Mean Corpuscular Hemoglobin 30 pg (27-31); Mean Corpuscular Volume 87 fL (80-97); Platelet Count 244 10^3/uL (150-450); Red Blood Count 4.21 10^6 /uL (3.70-4.87); Red Cell Distribution Width 14 % (10-15); White Blood Count 6.9 10^3/uL (3.5-10.8)
[2019-07-31 05:08] LABS: BUN/Creatinine Ratio 7.5 (8-20); Calcium 8.7 mg/dL (8.6-10.3); EGFR African American 76.9 (>60); EGFR Non-African American 63.6 (>60); Potassium 3.5 mmol/L (3.5-5.0)
[2019-07-31] MEDS: Ondansetron INJ* 2 MG/ML VIAL IV PRN (06:52)
--- NOTE | 2019-07-31 07:03 | PN ---
Subjective Date of Service: 07/31/19 Interval History: HD4 on 07/31 53F PMH CAD s/p distant RI, s/p CEA, COPD, chronic hep C, HTN, HLD, mood disorder, recent shingles with increased NSAID use (d/c 1 wk [employer]) who presents septic with ? intra-abdominal source (no e/o perforation, mass or colitis) and with severe epigastric pain found to have distal esophagitis on scan Overnight issues: Had abdominal pain; tramadol given Inez for endoscopy today NPO Has reflux today and 5 episodes of vomiting which was coffee ground color. NO pain or nausea at present. Objective Active Medications: Acetaminophen (Tylenol Tab*) 650 mg PO Q6H PRN PRN Reason: PAIN - MILD Last Admin: 07/30/19 19:36 Dose: 650 mg Albuterol (Ventolin Hfa Inhaler*) 2 puff INH Q4H PRN PRN Reason: SOB/WHEEZING Last Admin: 07/30/19 04:15 Dose: 2 puff Atorvastatin Calcium (Lipitor*) 80 mg PO DAILY [facility] Last Admin: 07/30/19 10:48 Dose: 80 mg Bupropion HCl (Wellbutrin Xl *) 150 mg PO DAILY [facility] Last Admin: 07/30/19 10:48 Dose: 150 mg Enoxaparin Sodium (Lovenox(*)) 40 mg SUBCUT Q24H [facility] Last Admin: 07/30/19 10:48 Dose: 40 mg Famotidine (Pepcid Iv*) 20 mg IV SLOW PU BID [facility] Last Admin: 07/30/19 19:35 Dose: 20 mg Ciprofloxacin/Dextrose (Cipro 400 Mg Ivpremix(*)) 400 mg in 200 mls @ 200 mls/ hr IVPB Q12H [facility]; Protocol Last Admin: 07/31/19 00:41 Dose: 200 mls/hr Metronidazole/Sodium Chloride (Flagyl 500 Mg Ivpb*) 500 mg in 100 mls @ 100 mls /hr IVPB Q12H [facility] Last Admin: 07/31/19 02:03 Dose: 100 mls/hr Isosorbide Mononitrate (Imdur Er Tab*) 30 mg PO DAILY [facility] Last Admin: 07/30/19 10:48 Dose: 30 mg Lidocaine (Xylocaine 2% Viscous*) 15 ml PO TID PRN PRN Reason: epigastric pain Last Admin: 07/30/19 14:17 Dose: 15 ml Magnesium Hydroxide (Milk Of Magnesia Liq*) 30 ml PO Q6H PRN PRN Reason: CONSTIPATION Last Admin: 07/29/19 13:23 Dose: 30 ml Nicotine (Nicotine Patch 14 Mg/24 Hr*) 1 patch TRANSDERM DAILY [facility] Last Admin: 07/30/19 10:50 Dose: Not Given Ondansetron HCl (Zofran Inj*) 4 mg IV Q6H PRN PRN Reason: NAUSEA Last Admin: 07/31/19 06:52 Dose: 4 mg Pantoprazole Sodium (Protonix Iv*) 40 mg IV DAILY [facility] Last Admin: 07/30/19 09:43 Dose: 40 mg Pharmacy Profile Note (Nicotine Patch Removal Note*) 1 note PATCH OFF 2100 [facility] Last Admin: 07/30/19 20:25 Dose: Not Given Potassium Chloride (Klor Con Er Tab*) 10 meq PO BID [facility] Last Admin: 07/30/19 19:36 Dose: 10 meq Sucralfate (Carafate*) 1 gm PO TID [facility] Last Admin: 07/30/19 19:36 Dose: 1 gm Tiotropium [place] (Spiriva Respimat 2.5 Mcg) 2 puff INH DAILY [facility] Last Admin: 07/30/19 07:32 Dose: 2 puff Vital Signs - 8 hr 07/30/19 07/31/19 23:15 02:45 Temperature 97.2 F Pulse Rate 83 Respiratory 20 18 Rate Blood Pressure 134/80 (mmHg) O2 Sat by Pulse 95 Oximetry Oxygen Devices in Use Now: None Exam: Patient is lying on bed with no acute distress HEENT: nOrmocephalic and atraumatic Lungs: wheeze heard on right lower lung Heart: S1/S2 heard with no any murmur Abdomen: Soft and nondistended. Tenderness present on epigastric region without rebound tenderness, guarding or rigidity. Extremity: Tattoo on right lower extremity Neuro: Alert, oriented and conscious Result Diagrams: 07/31/19 04:38 07/31/19 04:38 Additional Lab and Data: Laboratory Tests 07/27/19 07/27/19 07/27/19 18:03 18:03 18:03 WBC 22.5 H RBC 5.67 H Hgb 17.0 H Hct 48 H MCV 85 MCH 30 MCHC 35 RDW 14 Plt Count 348 MPV 6.9 L Neut % (Auto) 83.9 Lymph % (Auto) 11.3 [place] % (Auto) 4.2 Eos % (Auto) 0.0 Baso % (Auto) 0.6 Absolute Neuts (auto) 18.9 H Absolute Lymphs (auto) 2.5 Absolute Monos (auto) 1.0 H Absolute Eos (auto) 0.0 Absolute Basos (auto) 0.1 Absolute Nucleated RBC 0.0 Nucleated RBC % 0.0 Sodium 134 L Potassium 3.4 L Chloride 93 L Carbon Dioxide 23 Anion Gap 18 H BUN 36 H Creatinine 1.05 H Est GFR ( Amer) 66.9 Est GFR (Non-Af Amer) 55.3 BUN/Creatinine Ratio 34.3 H Glucose 148 H Lactic Acid 1.7 Calcium 10.1 Magnesium 2.0 Total Bilirubin 0.70 AST 13 ALT 15 Alkaline Phosphatase 131 H C-Reactive Protein 17.84 H Total Protein 8.2 Albumin 4.7 Globulin 3.5 Albumin/Globulin Ratio 1.3 Lipase 47 Beta HCG, Quant 5.45 07/27/19 Range/Units 20:29 WBC (3.5-10.8) 10^3/uL RBC (3.70-4.87) 10^6 /uL Hgb (12.0-16.0) g/dL Hct (35-47) % MCV (80-97) fL MCH (27-31) pg MCHC (31-36) g/dL RDW (10-15) % Plt Count (150-450) 10^3/uL MPV (7.4-10.4) fL Neut % (Auto) % Lymph % (Auto) % [place] % (Auto) % Eos % (Auto) % Baso % (Auto) % Absolute Neuts (auto) (1.5-7.7) 10^3/ul Absolute Lymphs (auto) (1.0-4.8) 10^3/ul Absolute Monos (auto) (0-0.8) 10^3/ul Absolute Eos (auto) (0-0.6) 10^3/ul Absolute Basos (auto) (0-0.2) 10^3/ul Absolute Nucleated RBC 10^3/ul Nucleated RBC % Sodium (135-145) mmol/L Potassium (3.5-5.0) mmol/L Chloride (101-111) mmol/L Carbon Dioxide (22-32) mmol/L Anion Gap (2-11) mmol/L BUN (6-24) mg/dL Creatinine (0.51-0.95) mg/dL Est GFR ( Amer) (>60) Est GFR (Non-Af Amer) (>60) BUN/Creatinine Ratio (8-20) Glucose (70-100) mg/dL Lactic Acid (0.5-2.0) mmol/L Calcium (8.6-10.3) mg/dL Magnesium (1.9-2.7) mg/dL Total Bilirubin (0.2-1.0) mg/dL AST (13-39) U/L ALT (7-52) U/L Alkaline Phosphatase (34-104) U/L C-Reactive Protein (<8.01) mg/L Total Protein (6.4-8.9) g/dL Albumin (3.2-5.2) g/dL Globulin (2-4) g/dL Albumin/Globulin Ratio (1-3) Lipase (11.0-82.0) U/L Beta HCG, Quant mIU/mL Urine Color [place] Urine Appearance Cloudy Urine pH 6.0 (5-9) Ur Specific [place] 1.044 H (1.010-1.030) Urine Protein 2+(100 mg/dl) A (Negative) Urine Ketones 1+ A (Negative) Urine Blood Negative (Negative) Urine Nitrate Negative (Negative) Urine Bilirubin Negative (Negative) Urine Urobilinogen Negative (Negative) Ur Leukocyte Esterase Negative (Negative) Urine WBC (Auto) Absent (Absent) Urine RBC (Auto) Absent (Absent) Ur Squamous Epith Cells Present A (Absent) Urine Bacteria Absent (Absent) Urine Glucose Negative (Negative) Microbiology and Other Data: Microbiology 07/29/19 23:00 Stool Occult Blood ([facility]IRA) - Final Stool 07/27/19 18:25 Aerobic Blood Culture - Preliminary No Source Provided No Growth Day 2 Anaerobic Blood Culture - Preliminary No Growth Day 2 Diagnostic Imaging: CT Scan: Distal Esophagitis on scan Assess/Plan/Problems-Billing Assessment: 53F PMH CAD s/p distant RI, s/p CEA, COPD, chronic hep C, HTN, HLD, mood disorder, recent shingles with increased NSAID use (d/c 1 wk [employer]) who presents septic with ? intra-abdominal source (no e/o perforation, mass or colitis) and with severe epigastric pain found to have distal esophagitis on scan, hospital course c/b diarrhea. - Patient Problems (1) Esophagitis Current Visit: Yes Status: Acute Code(s): K20.9 - ESOPHAGITIS, UNSPECIFIED SNOMED Code(s): 45323178 Comment: - Endoscopy today - had vomiting and reflux today - Diffuse thickening seen on CT. Pill esophagitis, vs PUD, less likely infectious, no e/o immunsuppresion - Epigastric pain continues, FOBT + - IV PPI, H2 ronald, Sucralfate AC (2) Sepsis Current Visit: Yes Status: Acute Comment: - Resolved, assumed intrabdominal source, possible translocation with erosive, now having diarrhea(resolved) - Culture data unrevealing - Treating for intrabdominal infection total of 5 days Day 3/5-7 Cipro/Flagyl on 07/31, (3) CAD (coronary artery disease) Current Visit: Yes Status: Acute Code(s): I25.10 - ATHSCL HEART DISEASE OF [place] CORONARY ARTERY W/O ANG PCTRS SNOMED Code(s): 05976853 Comment: - CAD w/ distant RI, then CVA without defecit - On 2/2 prevention on DAPT still 2/2 to hx of CVA, holding Clopidogrel initially, likely safe to resume if H/H doesn't drop in setting of diarrhea (4) Bipolar disorder Current Visit: Yes Status: Acute Code(s): F31.9 - BIPOLAR DISORDER, UNSPECIFIED SNOMED Code(s): 00683566 Comment: - Wellbutrin (5) COPD (chronic obstructive pulmonary disease) Current Visit: Yes Status: Acute Code(s): J44.9 - CHRONIC OBSTRUCTIVE PULMONARY DISEASE, UNSPECIFIED SNOMED Code(s): 76005936 Comment: - No e/o of exacerbation, continue home meds spiriva and albuterol (6) DVT prophylaxis Current Visit: Yes Status: Acute Code(s): Z29.9 - ENCOUNTER FOR PROPHYLACTIC MEASURES, UNSPECIFIED SNOMED Code(s): 792524534 Comment: - Lovenox (7) Full code status Current Visit: Yes Status: Acute Code(s): Z78.9 - OTHER SPECIFIED HEALTH STATUS SNOMED Code(s): 406289195 Status and Disposition: Inpatient; GI following, if stable post EGD, may be able to d/c to home if no further diarrhea Attending: Cuca Hilario Attestation Documenting Resident: Gloria Cohen Supervising Physician: Cuca Hilario Attestation: This service has been performed in part by a resident under the direction of a teaching physician.I, Cuca Hilario, performed the service, or was physically present during the critical, or sosa portions of the service, furnished by the resident. I participated in the management of the patient.
[2019-07-31] MEDS ORDERED: Morphine 4 MG/ML VIAL (1 ml) 4 MG/ML VIAL IV ONE (07:15)
[2019-07-31] MEDS: SPIRIVA Respimat* (tiotropium) 2.5 mcg/inh Inhaler INH SCH (08:19)
[2019-07-31] MEDS: Atorvastatin* 80 MG TAB PO SCH (08:24)
[2019-07-31] MEDS: Potassium Chlor TAB* 10 MEQ TAB.ER PO SCH ×2 (08:25→20:53)
[2019-07-31] MEDS: Sucralfate TAB* 1 GM PO SCH ×2 (08:25→18:58)
[2019-07-31] MEDS: Nicotine PATCH 14 MG/24 HR* PATCH TRANSDERM SCH (08:26)
[2019-07-31] MEDS: Famotidine IV* 10 MG/ML 2 ML (20 mg) IV SLOW PU SCH ×2 (08:32→20:52)
[2019-07-31] MEDS: Pantoprazole IV* 40 MG IV SCH (08:32)
[2019-07-31] MEDS: Enoxaparin(*) 40 MG/0.4 ML SYR SUBCUT SCH (08:32)
[2019-07-31] MEDS ORDERED: fentaNYL* 50 MCG/ML 2 ML VIAL (100 MCG VIAL) ONE (14:57)
[2019-07-31] MEDS ORDERED: Midazolam* 1 MG/ML 10 ML VIAL (10 MG) ONE (14:57)
--- NOTE | 2019-07-31 16:27 | PN ---
Progress Note - Progress Note Date of Service: 07/31/19 Note: pt still with abd pain E----->moderate erosive esophagitis about 1/2 up esophagus; large HH G----->no ulcers, bx for hpylori D----->nml, bx for Celiac Erosive Esophagitis --increase carafate to QID suspension, increase PPI to BID po GI will follow Stephan Bejarano MD
[2019-07-31] MEDS ORDERED: Sucralfate TAB* 1 GM PO SCH (17:00)
[2019-07-31] MEDS: BuPROPion XL* 150 MG TAB.XL PO SCH (18:11)
[2019-07-31] MEDS: Isosorbide Mononitrate ER TAB* 30 MG PO SCH (18:11)
[2019-07-31] MEDS: Sucralfate SUSP 1 GM/10 ml 10 ML UDC PO SCH (20:52)
[2019-07-31] MEDS: Pantoprazole TAB * 40 MG TAB PO SCH (20:53)
[2019-07-31] MEDS: Nicotine Patch Removal NOTE PATCH OFF SCH (20:54)
--- NOTE | 2019-07-31 23:02 | PRO ---
CC: Dr. Ragland * DATE OF PROCEDURE: 07/31/19 - PROCEDURE: EGD. INDICATION: Epigastric pain. REFERRING PHYSICIAN: Dr. Ragland. MEDICATIONS GIVEN: 75 mcg IV fentanyl, 7 mg IV Versed. DESCRIPTION OF PROCEDURE: After the EGD procedure including the risks, benefits , and alternatives not limited to perforation, surgery, and/or were explained to Mrs. Tran, written consent was then obtained, IV medication was given, and a bite block was placed between the teeth. An Olympus gastroscope was then inserted into the patient's mouth, advanced down the esophagus, into the stomach, and into the distal duodenum. In the esophagus at the GE junction , there was moderate erosive esophagitis. This extended approximately 50% of the way up the esophagus. There was oozing of blood. Scope was advanced through a very large hiatal hernia into the body of the stomach. Retroflex view confirmed patulous GE junction. Forward view was unremarkable except for a very small erosion. The scope was advanced through a widely patent pylorus into the duodenal bulb, into the distal duodenum, both of which were unremarkable. Scope was withdrawn after H. pylori biopsies and celiac biopsies were obtained. She tolerated the procedure well and was returned to the recovery room in stable condition. IMPRESSION: 1. Complete upper endoscopy into the distal duodenum with biopsies. 2. Biopsy for Helicobacter pylori and celiac. 3. Erosive esophagitis, moderate. She should have a PPI twice a day and Carafate 4 times a day. [id number]/CPS #: [id number] MTDD
[2019-08-01] MEDS: Ciprofloxacin 400MG IVPREMIX(* 400 MG/200 ML BAG IVPB SCH ×2 (00:13→14:04)
[2019-08-01] MEDS: metroNIDAZOLE IV 500 MG/100ML* 500 MG/100 ML BAG IVPB SCH (02:52)
--- NOTE | 2019-08-01 06:41 | PN ---
Subjective Date of Service: 08/01/19 Interval History: HD5 on 08/01 53F PMH CAD s/p distant GA, s/p CEA, COPD, chronic hep C, HTN, HLD, mood disorder, recent shingles with increased NSAID use (d/c 1 wk [employer]) who presents septic with ? intra-abdominal source (no e/o perforation, mass or colitis) and with severe epigastric pain found to have distal esophagitis on scan; EGD shows moderate erosive gastritis No acute overnight events VS stable No complaint at present tolerating oral diet well. Objective Active Medications: Acetaminophen (Tylenol Tab*) 650 mg PO Q6H PRN PRN Reason: PAIN - MILD Last Admin: 07/30/19 19:36 Dose: 650 mg Albuterol (Ventolin Hfa Inhaler*) 2 puff INH Q4H PRN PRN Reason: SOB/WHEEZING Last Admin: 07/30/19 04:15 Dose: 2 puff Atorvastatin Calcium (Lipitor*) 80 mg PO DAILY [facility] Last Admin: 07/31/19 08:24 Dose: Not Given Bupropion HCl (Wellbutrin Xl *) 150 mg PO DAILY [facility] Last Admin: 07/31/19 18:11 Dose: Not Given Enoxaparin Sodium (Lovenox(*)) 40 mg SUBCUT Q24H [facility] Last Admin: 07/31/19 08:32 Dose: 40 mg Famotidine (Pepcid Iv*) 20 mg IV SLOW PU BID [facility]AS[facility] Last Admin: 07/31/19 20:52 Dose: 20 mg Ciprofloxacin/Dextrose (Cipro 400 Mg Ivpremix(*)) 400 mg in 200 mls @ 200 mls/ hr IVPB Q12H [facility]; Protocol Last Admin: 08/01/19 00:13 Dose: 200 mls/hr Metronidazole/Sodium Chloride (Flagyl 500 Mg Ivpb*) 500 mg in 100 mls @ 100 mls /hr IVPB Q12H [facility] Last Admin: 08/01/19 02:52 Dose: 100 mls/hr Isosorbide Mononitrate (Imdur Er Tab*) 30 mg PO DAILY [facility] Last Admin: 07/31/19 18:11 Dose: Not Given Lidocaine (Xylocaine 2% Viscous*) 15 ml PO TID PRN PRN Reason: epigastric pain Last Admin: 07/30/19 14:17 Dose: 15 ml Magnesium Hydroxide (Milk Of Magnesia Liq*) 30 ml PO Q6H PRN PRN Reason: CONSTIPATION Last Admin: 07/29/19 13:23 Dose: 30 ml Nicotine (Nicotine Patch 14 Mg/24 Hr*) 1 patch TRANSDERM DAILY [facility] Last Admin: 07/31/19 08:26 Dose: Not Given Ondansetron HCl (Zofran Inj*) 4 mg IV Q6H PRN PRN Reason: NAUSEA Last Admin: 07/31/19 06:52 Dose: 4 mg Pantoprazole Sodium (Protonix Tab*) 40 mg PO BID [facility] Last Admin: 07/31/19 20:53 Dose: 40 mg Pharmacy Profile Note (Nicotine Patch Removal Note*) 1 note PATCH OFF 2100 [facility] Last Admin: 07/31/19 20:54 Dose: 1 note Potassium Chloride (Klor Con Er Tab*) 10 meq PO BID [facility] Last Admin: 07/31/19 20:53 Dose: 10 meq Sucralfate (Sucralfate Susp) 1 gm PO QID [facility] Last Admin: 07/31/19 20:52 Dose: 1 gm Tiotropium Holl[place] (Spiriva Respimat 2.5 Mcg) 2 puff INH DAILY [facility] Last Admin: 07/31/19 08:19 Dose: 2 puff Vital Signs - 8 hr 07/31/19 08/01/19 08/01/19 23:26 02:04 03:24 Temperature 97.6 F 97.6 F Pulse Rate 84 84 82 Respiratory 20 16 18 Rate Blood Pressure 109/57 138/85 (mmHg) O2 Sat by Pulse 97 97 97 Oximetry Oxygen Devices in Use Now: None Exam: Patient is lying on bed with no acute distress HEENT: nOrmocephalic and atraumatic Lungs: Clear Heart: S1/S2 heard with no any murmur Abdomen: Soft and nondistended. MILD Tenderness present on epigastric region without rebound tenderness, guarding or rigidity. Extremity: Tattoo on right lower extremity Neuro: Alert, oriented and conscious Result Diagrams: 07/31/19 04:38 07/31/19 04:38 Additional Lab and Data: Laboratory Tests 07/27/19 07/27/19 07/27/19 18:03 18:03 18:03 WBC 22.5 H RBC 5.67 H Hgb 17.0 H Hct 48 H MCV 85 MCH 30 MCHC 35 RDW 14 Plt Count 348 MPV 6.9 L Neut % (Auto) 83.9 Lymph % (Auto) 11.3 Daniels % (Auto) 4.2 Eos % (Auto) 0.0 Baso % (Auto) 0.6 Absolute Neuts (auto) 18.9 H Absolute Lymphs (auto) 2.5 Absolute Monos (auto) 1.0 H Absolute Eos (auto) 0.0 Absolute Basos (auto) 0.1 Absolute Nucleated RBC 0.0 Nucleated RBC % 0.0 Sodium 134 L Potassium 3.4 L Chloride 93 L Carbon Dioxide 23 Anion Gap 18 H BUN 36 H Creatinine 1.05 H Est GFR ( Amer) 66.9 Est GFR (Non-Af Amer) 55.3 BUN/Creatinine Ratio 34.3 H Glucose 148 H Lactic Acid 1.7 Calcium 10.1 Magnesium 2.0 Total Bilirubin 0.70 AST 13 ALT 15 Alkaline Phosphatase 131 H C-Reactive Protein 17.84 H Total Protein 8.2 Albumin 4.7 Globulin 3.5 Albumin/Globulin Ratio 1.3 Lipase 47 Beta HCG, Quant 5.45 07/27/19 Range/Units 20:29 WBC (3.5-10.8) 10^3/uL RBC (3.70-4.87) 10^6 /uL Hgb (12.0-16.0) g/dL Hct (35-47) % MCV (80-97) fL MCH (27-31) pg MCHC (31-36) g/dL RDW (10-15) % Plt Count (150-450) 10^3/uL MPV (7.4-10.4) fL Neut % (Auto) % Lymph % (Auto) % Daniels % (Auto) % Eos % (Auto) % Baso % (Auto) % Absolute Neuts (auto) (1.5-7.7) 10^3/ul Absolute Lymphs (auto) (1.0-4.8) 10^3/ul Absolute Monos (auto) (0-0.8) 10^3/ul Absolute Eos (auto) (0-0.6) 10^3/ul Absolute Basos (auto) (0-0.2) 10^3/ul Absolute Nucleated RBC 10^3/ul Nucleated RBC % Sodium (135-145) mmol/L Potassium (3.5-5.0) mmol/L Chloride (101-111) mmol/L Carbon Dioxide (22-32) mmol/L Anion Gap (2-11) mmol/L BUN (6-24) mg/dL Creatinine (0.51-0.95) mg/dL Est GFR ( Amer) (>60) Est GFR (Non-Af Amer) (>60) BUN/Creatinine Ratio (8-20) Glucose (70-100) mg/dL Lactic Acid (0.5-2.0) mmol/L Calcium (8.6-10.3) mg/dL Magnesium (1.9-2.7) mg/dL Total Bilirubin (0.2-1.0) mg/dL AST (13-39) U/L ALT (7-52) U/L Alkaline Phosphatase (34-104) U/L C-Reactive Protein (<8.01) mg/L Total Protein (6.4-8.9) g/dL Albumin (3.2-5.2) g/dL Globulin (2-4) g/dL Albumin/Globulin Ratio (1-3) Lipase (11.0-82.0) U/L Beta HCG, Quant mIU/mL Urine Color [place] Urine Appearance Cloudy Urine pH 6.0 (5-9) Ur Specific [place] 1.044 H (1.010-1.030) Urine Protein 2+(100 mg/dl) A (Negative) Urine Ketones 1+ A (Negative) Urine Blood Negative (Negative) Urine Nitrate Negative (Negative) Urine Bilirubin Negative (Negative) Urine Urobilinogen Negative (Negative) Ur Leukocyte Esterase Negative (Negative) Urine WBC (Auto) Absent (Absent) Urine RBC (Auto) Absent (Absent) Ur Squamous Epith Cells Present A (Absent) Urine Bacteria Absent (Absent) Urine Glucose Negative (Negative) Microbiology and Other Data: Microbiology 07/29/19 23:00 Stool Occult Blood (INDIRA) - Final Stool 07/27/19 18:25 Aerobic Blood Culture - Preliminary No Source Provided No Growth Day 2 Anaerobic Blood Culture - Preliminary No Growth Day 2 Diagnostic Imaging: CT Scan: Distal Esophagitis on scan Assess/Plan/Problems-Billing Assessment: 53F PMH CAD s/p distant GA, s/p CEA, COPD, chronic hep C, HTN, HLD, mood disorder, recent shingles with increased NSAID use (d/c 1 wk [employer]) who presents septic with ? intra-abdominal source (no e/o perforation, mass or colitis) and with severe epigastric pain found to have distal esophagitis on scan, hospital course c/b diarrhea. EGD done on 07/31 showed moderate esophagitis with small HH; bx for H. pylori sent - Patient Problems (1) Esophagitis Current Visit: Yes Status: Acute Code(s): K20.9 - ESOPHAGITIS, UNSPECIFIED SNOMED Code(s): 96457800 Comment: - Endoscopy done- moderative erosive gastritis - Diffuse thickening seen on CT. Pill esophagitis, vs PUD, less likely infectious, no e/o immunsuppresion - Epigastric pain continues, FOBT + - IV PPI, Sucralfate AC Can be discharged today (2) Sepsis Current Visit: Yes Status: Acute Comment: - Resolved, assumed intrabdominal source, possible translocation with erosive, now having diarrhea(resolved) - Culture data unrevealing - 5 days abx completed(including zosyn) (3) CAD (coronary artery disease) Current Visit: Yes Status: Acute Code(s): I25.10 - ATHSCL HEART DISEASE OF [place] CORONARY ARTERY W/O ANG PCTRS SNOMED Code(s): 20006017 Comment: - CAD w/ distant GA, then CVA without defecit - On 2/2 prevention on DAPT still 2/2 to hx of CVA, holding Clopidogrel initially, likely safe to resume if H/H doesn't drop in setting of diarrhea (4) Bipolar disorder Current Visit: Yes Status: Acute Code(s): F31.9 - BIPOLAR DISORDER, UNSPECIFIED SNOMED Code(s): 24440722 Comment: - Wellbutrin (5) COPD (chronic obstructive pulmonary disease) Current Visit: Yes Status: Acute Code(s): J44.9 - CHRONIC OBSTRUCTIVE PULMONARY DISEASE, UNSPECIFIED SNOMED Code(s): 88130007 Comment: - No e/o of exacerbation, continue home meds spiriva and albuterol (6) DVT prophylaxis Current Visit: Yes Status: Acute Code(s): Z29.9 - ENCOUNTER FOR PROPHYLACTIC MEASURES, UNSPECIFIED SNOMED Code(s): 433391894 Comment: - Lovenox (7) Full code status Current Visit: Yes Status: Acute Code(s): Z78.9 - OTHER SPECIFIED HEALTH STATUS SNOMED Code(s): 469213618 Status and Disposition: Inpatient; d/c today will follow up with pcp and gi outpatient Attending: Cuca Hilario Attestation Documenting Resident: Gloria Cohen Supervising Physician: Cuca Hilario Attestation: This service has been performed in part by a resident under the direction of a teaching physician.I, Cuca Hilario, performed the service, or was physically present during the critical, or sosa portions of the service, furnished by the resident. I participated in the management of the patient.
[2019-08-01] MEDS: SPIRIVA Respimat* (tiotropium) 2.5 mcg/inh Inhaler INH SCH (07:33)
[2019-08-01] MEDS: Sucralfate SUSP 1 GM/10 ml 10 ML UDC PO SCH ×2 (08:52→14:04)
[2019-08-01] MEDS: Potassium Chlor TAB* 10 MEQ TAB.ER PO SCH (08:52)
[2019-08-01] MEDS: Famotidine IV* 10 MG/ML 2 ML (20 mg) IV SLOW PU SCH (08:52)
[2019-08-01] MEDS: Atorvastatin* 80 MG TAB PO SCH (08:52)
[2019-08-01] MEDS: Isosorbide Mononitrate ER TAB* 30 MG PO SCH (08:52)
[2019-08-01] MEDS: Pantoprazole TAB * 40 MG TAB PO SCH (08:53)
[2019-08-01] MEDS: Enoxaparin(*) 40 MG/0.4 ML SYR SUBCUT SCH (08:53)
[2019-08-01] MEDS: Nicotine PATCH 14 MG/24 HR* PATCH TRANSDERM SCH (08:53)
[2019-08-01] MEDS: BuPROPion XL* 150 MG TAB.XL PO SCH (09:00)
[2019-08-01 11:30] VITALS: BP 138/92
[2019-08-01] MEDS ORDERED: Ondansetron TAB* 4 MG PO PRN (12:35)
--- NOTE | 2019-08-01 23:09 | DS ---
CC: Dr. Tucker Ragland; Dr. Stephan Bejarano * DISCHARGE SUMMARY: DATE OF ADMISSION: 07/28/19 DATE OF DISCHARGE: 08/01/19 PRIMARY CARE PHYSICIAN: Tucker Ragland DO PRIMARY DIAGNOSES: 1. Erosive esophagitis. 2. Sepsis, possible intraabdominal source. CONSULTS: Dr. Stephan Bejarano of GI. PROCEDURES: EGD, 07/31/19. DISCHARGE MEDICATIONS: 1. Pantoprazole 40 mg twice a day. 2. Sucralfate 1 g 4 times a day. 3. Ondansetron 4 mg every 6 hours as needed for nausea. 4. Rosuvastatin 40 mg daily. 5. Clopidogrel 75 mg daily. 6. Imdur 30 mg daily. 7. Bupropion 150 mg daily. 8. Potassium chloride 10 mEq twice a day. 9. Viscous lidocaine 15 mL orally as needed for pain. HISTORY OF PRESENT ILLNESS: Ms. Tran is a 53-year-old woman with COPD and active tobacco use, history of HI, CVAs, left carotid artery stenosis, status post CEA, who had recently developed shingles approximately 4 weeks prior to presentation. She was prescribed ibuprofen for which she took 1200 mg twice a day for the last few weeks. Two days prior to admission, she developed nausea, vomiting, and epigastric pain which was 10/10 on the day prior to presentation which is what sought her to seek medical care. She reports emesis approximately 12 times on the day prior to presentation, significant for brownish liquid. She denied coffee- ground emesis or blood or melena. HOSPITAL COURSE: In the emergency room, she was noted to be tachycardic to 118 , hypertensive with initial labs significant for leukocytosis and elevated hemoglobin. A chest x-ray was without acute pathology. A gallbladder ultrasound was without abnormal pathology. A CT abdomen showed new abnormal wall thickening involving the distal esophagus, suspicious for possible esophagitis and a new small hiatal hernia with normal gallbladder and pancreas. She was given IV medications for nausea with 3.5 L of fluid and referred to the hospitalist service for further evaluation and management. Gastroenterology was consulted for upper GI symptoms and they recommended upper endoscopy to evaluate for peptic ulcer disease or erosive esophagitis. This was on Wednesday and she was unable to undergo an EGD until the following Wednesday. She was continued on PPI and reported significant pain on eating throughout the weekend that was not significantly improved with viscous lidocaine. She did experience a few episodes of watery dark diarrhea. She had been started on Zosyn in the ER for leukocytosis and had been switched to Cipro and Flagyl, which she tolerated well. Her hemoglobin remained stable for her final 3 days of admission. Her leukocytosis quickly resolved. EGD on the evening prior to admission was significant for erosive esophagitis. It was recommended that she have a PPI twice a day with Carafate 4 times daily. Samples were sent for Helicobacter pylori and celiac disease. As the patient was tolerating food by next day, she was deemed ready for discharge. She reported improvement in her pain after starting Carafate. By the time of discharge, she had completed 5 days of antibiotics to cover a possible GI source and her only recorded fever was on night of admission at 100.4 with no further fevers over the subsequent several days. PERTINENT DIAGNOSTIC STUDIES: Hemoglobin on discharge, 12.7 with normal MCV. Creatinine on discharge, 0.93. Hemoglobin A1c 6.1. CRP 17. Hep C antibody reactive with undetectable hep C RNA. Abdomen and pelvis CT with new abnormal wall thickening involving distal esophagus, suspicious for possible esophagitis. There is a new small hiatal hernia. The pancreas was unremarkable. The gallbladder appears unremarkable. There is stable sigmoid colonic diverticulosis without evidence for acute diverticulitis. DISCHARGE PLAN: The patient reports appointments next week with her PCP and Gastroenterology. She is to continue her home medications as listed above, notably a PPI has been added twice a day as well as sucralfate 4 times a day. She can also take viscous lidocaine orally as needed for pain. She was educated to avoid NSAIDs, including ibuprofen and naproxen. She was educated on return precautions which include melena, hematemesis, occurrence of vomiting. She is to eat healthy diet, low in processed foods and resume activity as tolerated. DISPOSITION: To home. CONDITION: Good. TIME SPENT: Approximately 60 minutes was spent on discharge of this patient, more than half of which was spent with care coordination at bedside for interview and exam. [id number]/[facility] #: [id number] [place]
== END 2019-08-01 17:00 | disposition home or self-care (01) | DRG 872 ==
LOC: ED 17:31 → MED 07-28 01:17 → OBSVTOIN 07-29 16:00
PROVIDERS: ADMIT Internal Medicine; ATTEND Internal Medicine
PROC: 0DD98ZX Extraction of Duodenum, Via Natural or Artificial Opening Endoscopic, Diagnostic (ICD-10-PCS; principal; 2019-07-31)
PROC: 0DD68ZX Extraction of Stomach, Via Natural or Artificial Opening Endoscopic, Diagnostic (ICD-10-PCS; 2019-07-31)
DX: A41.9 Sepsis, unspecified organism (principal); K92.0 Hematemesis; K22.10 Ulcer of esophagus without bleeding; I65.22 Occlusion and stenosis of left carotid artery; J44.9 Chronic obstructive pulmonary disease, unspecified; K21.9 Gastro-esophageal reflux disease without esophagitis; F60.3 Borderline personality disorder; B19.20 Unspecified viral hepatitis C without hepatic coma; I25.10 Atherosclerotic heart disease of native coronary artery without angina pectoris; K44.9 Diaphragmatic hernia without obstruction or gangrene; F31.9 Bipolar disorder, unspecified; I10 Essential (primary) hypertension; F17.210 Nicotine dependence, cigarettes, uncomplicated; K57.30 Diverticulosis of large intestine without perforation or abscess without bleeding; F14.11 Cocaine abuse, in remission; R19.7 Diarrhea, unspecified; F12.11 Cannabis abuse, in remission; Z86.73 Personal history of transient ischemic attack (TIA), and cerebral infarction without residual deficits; I25.2 Old myocardial infarction; Z79.02 Long term (current) use of antithrombotics/antiplatelets; Z86.19 Personal history of other infectious and parasitic diseases; Z79.899 Other long term (current) drug therapy; Z88.8 Allergy status to other drugs, medicaments and biological substances; Z88.6 Allergy status to analgesic agent; Z91.030 Bee allergy status; Z80.1 Family history of malignant neoplasm of trachea, bronchus and lung; Z80.8 Family history of malignant neoplasm of other organs or systems; Z82.3 Family history of stroke
CPT/HCPCS: 36415; 71046; 74177; 76705; 80048; 80053; 80074; 81003; 81015; 82150; 82270; 83036; 83605; 83690; 83735; 84702; 85025; 86140; 87040; 87077; 87389; 87522; 88305; 93005; 94640; 99156; 99157; 99285; 99406; A9270-GY; G0378; J0744; J0780; J1200; J1650; J2250; J2270; J2405; J2543; J3010; J3535; Q9967